=== PATIENT | male | born 1985 | race Caucasian/White ===

== ENCOUNTER 2021-01-17 02:27 | Emergency (ER) | payer BC ==
--- NOTE | 2021-01-17 03:00 | EDM.PDOC ---
ED HPI GENERAL MEDICAL PROBLEM - General Chief Complaint: Lower Extremity Injury/Pain Stated Complaint: JUMPED OFF RETAINING WALL INJURIED BOTH FEET/ANKLE Time Seen by Provider: 01/17/21 03:00 - History of Present Illness INITIAL COMMENTS - FREE TEXT/NARRATIVE: 35-year-old male presents the emergency room with bilateral foot and ankle pain Patient jumped off a 9 foot retaining wall landing on a hard surface he has significant pain especially in the right side. He denies any other injury associated with this most unfortunate event he has foot and ankle type pain bilaterally. Drugs and/or alcohol was not involved. Patient is visiting here from [facility]. Right Foot Pain Score (Numeric/FACES): 8 Left Foot Pain Score (Numeric/FACES): 2 - Related Data Allergies Allergy/AdvReac Type Severity Reaction Status Date / Time No Known Allergies Allergy Verified 01/17/21 02:40 Home Meds: Home Meds Bictegrav/Emtricit/Tenofov Ala [Biktarvy 50-200-25 mg Tablet] 1 tab PO DAILY 01/17/21 [History] Propranolol [Inderal] 20 mg PO BID 01/17/21 [History] Venlafaxine [Effexor XR] 150 mg PO DAILY 01/17/21 [History] Past Medical History Cardiovascular History: Reports: Hypertension, Other (See Below) Other Cardiovascular History: tachycardia Immunologic History: Reports: HIV - Infectious Disease History Infectious Disease History: Reports: HIV-Human Immunodeficiency Virus - Past Surgical History Cardiovascular Surgical History: Reports: Other (See Below) Other Cardiovascular Surgeries/Procedures: multiple heart caths, bicuspid aortic heart valve GI Surgical History: Reports: Other (See Below) Other GI Surgeries/Procedures: multiple procedures for anal biopsy, abdominal fundoplication Social & Family History - Tobacco Use Tobacco Use Status *Q: Current Every Day Tobacco User Years of Tobacco use: 15 Packs/Tins Daily: 0.2 - Recreational Drug Use Recreational Drug Use: No Review of Systems - Review of Systems Review Of Systems: See Below Constitutional: Reports: No Symptoms Eyes: Reports: No Symptoms Ears: Reports: No Symptoms Nose: Reports: No Symptoms Mouth/Throat: Reports: No Symptoms Respiratory: Reports: No Symptoms Cardiovascular: Reports: No Symptoms GI/Abdominal: Reports: No Symptoms Genitourinary: Reports: No Symptoms Musculoskeletal: Reports: No Symptoms Skin: Reports: No Symptoms Neurological: Reports: No Symptoms ED EXAM, GENERAL - Physical Exam Exam: See Below Exam Limited By: No Limitations General Appearance: Alert, No Apparent Distress Head: Atraumatic, Normocephalic Neck: Normal Inspection, Supple, Non-Tender, Full Range of Motion Respiratory/Chest: No Respiratory Distress, Lungs Clear, Normal Breath Sounds Cardiovascular: Regular Rate, Rhythm, No Edema, No Murmur GI/Abdominal: Normal Bowel Sounds, Soft, Non-Tender, Pelvis Stable Back Exam: Normal Inspection, Full Range of Motion. No: CVA Tenderness (L), CVA Tenderness (R), Muscle Spasm, Paraspinal Tenderness, Vertebral Tenderness Extremities: Other (Bilateral upper extremities are okay he has some vague discomfort around the left ankle no swelling as well as the left fore foot. He has marked discomfort around the right ankle with minimal swelling right fore foot seems to be a okay) Neurological: Alert, Oriented, Normal Cognition Skin Exam: Warm, Dry, Intact Course - Vital Signs Last Recorded V/S: Last Vital Signs Temp 36.6 C 01/17/21 02:38 Pulse 86 01/17/21 02:38 Resp 16 01/17/21 02:38 BP 150/99 H 01/17/21 02:38 Pulse Ox 100 01/17/21 02:38 - Orders/Labs/Meds Orders: Active Orders 24 hr Category Date Time Status Foot Comp Min 3V Bi [CR] Stat Exams 01/17/21 04:43 Taken Tibia Fibula Bi [CR] Stat Exams 01/17/21 03:06 Taken Durable Medical Equipment for Discharge [DME for Oth 01/17/21 06:00 Ordered Discharge] [COMM] Stat Durable Medical Equipment for Discharge [DME for Oth 01/17/21 06:01 Ordered Discharge] [COMM] Stat Meds: Medications Discontinued Medications Generic Name Dose Route Start Last Admin Trade Name Freq PRN Reason Stop Dose Admin Morphine Sulfate 2 mg 01/17/21 03:42 01/17/21 03:51 Morphine 2 Mg/Ml Syringe IM 01/17/21 03:43 2 mg ONETIME ONE Administration Morphine Sulfate 4 mg 01/17/21 05:20 Morphine 4 Mg/Ml Syringe IM 01/17/21 05:21 ONETIME ONE Morphine Sulfate 4 mg 01/17/21 05:26 01/17/21 05:32 Morphine 4 Mg/Ml Syringe IVPUSH 01/17/21 05:27 4 mg ONETIME ONE Administration - Re-Assessments/Exams Free Text/Narrative Re-Assessment/Exam: 01/17/21 06:07 X-ray examination of the lower legs and feet was obtained I am not appreciating any fractures on the left side on the right side the patient has a distal tibial fracture in good alignment. The patient is visiting here from [facility] he be placed in a walking boot and crutches. The walking boot is to prevent further injury and to facilitate healing the crutches were used as he cannot bear weight on the most affected side. Departure - Departure Time of Disposition: 06:09 Disposition: Home, Self-Care 01 Clinical Impression: Closed fracture of right distal tibia, Right foot injury, Injury of left foot, Injury of right lower leg, Injury of left lower leg - Discharge Information Instructions: Crutch Use, Adult, [id number] Referrals: PCP,Not In Area [Primary Care Provider] - Forms: ED Department Discharge Additional Instructions: Return to the emergency room with any questions problems or worsening symptoms. Follow-up with the orthopedic surgeon this Tuesday get home. Wear the walking boot at all times. Do not bear weight on this foot. Use the crutches at all times. You were given [place], from the machine out in the waiting room, #20. [address] or return to work within 12 hours using this medication. Do not take before 9:00 this morning Sepsis Event Note (ED) - Evaluation Sepsis Screening Result: No Definite Risk - Focused Exam Vital Signs: Vital Signs Temp Pulse Resp BP Pulse Ox 01/17/21 02:38 36.6 C 86 16 150/99 H 100 - My Orders Last 24 Hours: My Active Orders 01/17/21 03:06 Tibia Fibula Bi [CR] Stat 01/17/21 04:43 Foot Comp Min 3V Bi [CR] Stat 01/17/21 06:00 Durable Medical Equipment for Discharge [DME for Discharge] [COMM] Stat 01/17/21 06:01 Durable Medical Equipment for Discharge [DME for Discharge] [COMM] Stat - Assessment/Plan Last 24 Hours: My Active Orders 01/17/21 03:06 Tibia Fibula Bi [CR] Stat 01/17/21 04:43 Foot Comp Min 3V Bi [CR] Stat 01/17/21 06:00 Durable Medical Equipment for Discharge [DME for Discharge] [COMM] Stat 01/17/21 06:01 Durable Medical Equipment for Discharge [DME for Discharge] [COMM] Stat
[2021-01-17] MEDS ORDERED: Morphine 2 MG/ML SYRINGE IM ONE (03:42)
[2021-01-17] MEDS ORDERED: Morphine 4 MG/ML Syringe IM ONE (05:20)
[2021-01-17] MEDS ORDERED: Morphine 4 MG/ML Syringe IVPUSH ONE (05:26)
--- NOTE | 2021-01-17 14:26 | CR ---
Bilateral feet: 3 views of the right and left feet were obtained. Comparison: No prior foot exam is available. Fracture is seen within the distal right tibia with articular extension. No significant displacement is seen. Other portions of the right and left foot study appear within normal limits. Impression: 1. Distal tibia fracture on the right side. 2. Other portions of the 3 view bilateral feet exam appear unremarkable. Diagnostic code #3
--- NOTE | 2021-01-17 14:28 | CR ---
Bilateral tibia and fibula: AP and lateral views of both tibia and fibula were obtained. Comparison: No prior tibia or fibula study is available. Left tibia and fibula appear intact with no fracture or other abnormality. Right tibia and fibula shows an oblique fracture within the distal diaphysis of the tibia which extends into the epiphysis with articular extension. Impression: 1. Nondisplaced oblique fracture within the distal right tibia with articular extension. 2. No additional abnormality is seen. Diagnostic code #3
--- NOTE | 2021-01-17 14:30 | CR ---
Right ankle: Single oblique view of the right ankle was obtained. Comparison: Study correlated with tibia and fibula study performed earlier on the same day. Oblique fracture is noted within the tibia involving the distal metaphysis to the epiphysis with articular extension. No significant displacement is seen on this exam. Ankle mortise appears symmetric on this study. No additional abnormality is seen. Impression: 1. Nondisplaced oblique distal tibial fracture. Diagnostic code #3
== END 2021-01-17 06:50 | disposition home or self-care (01) ==
LOC: JD.ED 02:27
DX: S82.301A Unspecified fracture of lower end of right tibia, initial encounter for closed fracture (principal); I10 Essential (primary) hypertension; B20 Human immunodeficiency virus [HIV] disease; Z72.0 Tobacco use; Z79.899 Other long term (current) drug therapy; W17.89XA Other fall from one level to another, initial encounter
CPT/HCPCS: 73590; 73600; 73630; 96372; 96374; 99283; J2270